=== PATIENT | male | born 1950 | race Caucasian/White ===

== ENCOUNTER 2017-05-02 15:30 | Inpatient (IN) | payer MEDICARE, OTHER ==
[~2017-05-02] VITALS: Ht 175.3 cm; Wt 81.0 kg
--- NOTE | ~2017-05-02 | ECHO ---
Transthoracic Echocardiography Report (TTE) Demographics Patient Name LINDA VALDEZ Date of Study 05/03/2017 Patient Number [id number] Visit Number [id number] Date of 1950 Room Number G6322 Accession Number [id number] Gender Male Age 66 year(s) Referring Erinn Floyd MD Aids Social Worker Kari Buckner Physician RVT Physician Interpreting Jordan Ferguson MD Premium Cancellation Clerk Physician Supervising Ordering Physician Erinn Floyd MD, MD/P Nurse Stress Health Care Consultant Conclusions Summary The estimated left ventricular ejection fraction is 20-25%. Mild concentric left ventricular hypertrophy. Diastolic function indeterminate due to patient's arrhythmia. Mildly reduced right ventricular function. The left atrium is moderately dilated by LA volume index measurement. The right atrium is mild to moderately dilated. IVC not visualized due to poor subcostal window. Mild mitral regurgitation by color Doppler. The aortic valve is mildly sclerotic. There is trivial aortic regurgitation by color Doppler. Mild tricuspid regurgitation by color Doppler. Trivial pulmonic valve regurgitation by color Doppler. Possible trivial pericardial effusion. Possible pleural effusion. Definity images are 92-97 Procedure Type of Study TTE procedure:2D Echocardiogram, Echo with Contrast. Procedure Date Date: 05/03/2017 Start: 08:47 AM Study Location: Inpatient Portable Technical Quality: Adequate visualization Indications:Atrial fibrillation. Appropriate Use Criteria: 9 Patient Status: STAT Contrast Medium: Definity. Amount - 2 ml HR: 91 bpm BP: 129/90 mmHg M-Mode/2D Measurements LV Diastolic Dimension: 5.21 cm LV Systolic Dimension: 3.8 cm LV Septum Diastolic: 1.32 cm LV PW Diastolic: 1.34 cm AO Root Dimension: 2.5 cm Cardiac Output: 3.21 l/min AV Cusp Separation: 2 cm RV Diastolic Dimension: 2.75 cm LA volume: 87 ml LVOT: 2.1 cm RV Base: 3.23 cm LVOT VTI: 10.2 cm RV Mid: 3.02 cm LV Stroke volume: 35.31 ml TAPSE: 1.35 cm TDI-S': 8.99 cm/s Doppler Measurements AV Peak Velocity: 0.98 m/s MV Peak E-Wave: 1.33 m/s AV Peak Gradient: 3.8 mmHg AV Mean Gradient: 2 mmHg MV P1/2t: 43 msec LVOT Peak Velocity: 0.64 m/s TR Velocity:2.24 m/s PV Peak Velocity: 0.68 m/s TR Gradient:20.07 mmHg PV Peak Gradient: 1.84 mmHg E' Septal Velocity: 0.1 m/s E' Lateral Velocity: 0.13 m/s Findings Left Ventricle Mild concentric left ventricular hypertrophy. Diastolic function indeterminate due to patient's arrhythmia. Anterior wall and septum show severe hypokinesis Right Ventricle Mildly reduced right ventricular function. Left Atrium The left atrium is mildly dilated. Right Atrium The right atrium is mild to moderately dilated. IVC not visualized due to poor subcostal window. Mitral Valve Mild-moderate mitral regurgitation by color Doppler. Aortic Valve The aortic valve is mildly sclerotic. There is trivial aortic regurgitation by color Doppler. Tricuspid Valve Mild tricuspid regurgitation by color Doppler. Pulmonic Valve Trivial pulmonic valve regurgitation by color Doppler. Pericardial Effusion Possible trivial pericardial effusion. Miscellaneous Definity images are 92-97 Visualized portions of the aortic root and ascending aorta appear normal in size. No evidence of apical echo density to suggest thrombus Pleural Effusion Possible pleural effusion. Contractility Score LV regional wall motion:(0-Non visualized 1-Normal 2-Hypokinesis 3-Akinesis 4-Dyskinesis 5-Aneurysm) Signature dtt: Marty Ortega (cardio) dtd: 05/03/17 0847 Physician Self Edit
--- NOTE | ~2017-05-02 | CON ---
PATIENT'S NAME: LINDA VALDEZ [facility] AGE: 66 Y [address] ROOM: [id number] [place], [place] [address] LOCATION: GICU ADMIT DATE: 05/02/2017 Consultation DISCHARGE DATE: FAMILY PHYSICIAN: Alli Grande MD ATTENDING PHYSICIAN: BHANU ARRIAZA DATE OF CONSULTATION: 05/05/2017 REFERRING PHYSICIAN: Johnnie VIDALES MD LOCATION: [facility]. REFERRING PHYSICIAN: Syed Palma MD REASON FOR CONSULT: This is a palliative care referral for end-of-life discussion, goals of care, and patient and family support. HISTORY OF PRESENT ILLNESS: This 66-year-old male was admitted on 05/02/2017. 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 He was admitted for altered mental state and atrial fibrillation with RVR. The patient was going to start chemotherapy and underwent PEG tube placement and a Port-A-Cath placement and had the liver biopsy that confirmed it with metastasis to the liver. He had been given Ambien and Ativan at home, became more lethargic and confused, had fallen, was brought to the hospital in [place], and then later transferred to for higher level of care for cardiac and a followup on his atrial fibrillation with RVR with a heart rate of 153. The patient continues to be lethargic. Does arouse some, answer some questions, yes and no, but has not been eating much. Denies any pain or discomfort. No shortness of breath. No nausea or vomiting. He is tolerating tube feedings. 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 PAST SURGICAL HISTORY: PEG tube placement on 04/30/2017, Port-A-Cath placement and liver biopsy in PATIENT'S NAME: LINDA VALDEZ [facility] AGE: 66 Y [address] ROOM: [id number] [place], [place] [address] [facility] ADMIT DATE: 05/02/2017 Consultation DISCHARGE DATE: FAMILY PHYSICIAN: Alli Grande MD ATTENDING PHYSICIAN: BHANU ARRIAZA 2017, had cardiac stents placed in [place] per left heart catheterization; ulloa to legs and arms requiring surgery; and bilateral hand surgeries. ALLERGIES: LATEX CAUSES A RASH. SOCIAL HISTORY: He is and has 2 children, but he has no contact with them. He had been living at home with his . History of smoking 1/2-pack of cigarettes a day for 55 years, quit in 2013. No alcohol use. FAMILY HISTORY: He is adopted. Family history is unknown. REVIEW OF SYSTEMS: A complete review of systems was done. Chart was reviewed with spouse and is negative except as mentioned in the HPI. PHYSICAL EXAMINATION: VITAL SIGNS: Temperature 97.6, pulse 105, respirations 22, blood pressure is 102/74, and O2 saturation is 95% on 2 L of oxygen. GENERAL: Drowsy, does arouse, answers few questions, falls back to sleep easily, in no acute distress. SKIN: Warm and dry. Color is pale. HEENT: Sclerae are nonicteric. Conjunctivae are pale, pink. Mouth is pink and dry. No exudate. LYMPHATIC: No cervical adenopathy or thyromegaly. RESPIRATORY: Some rhonchi and rales in the left lung. Right lung is clear to auscultation. Diminished breath sounds. Even and regular. CARDIAC: S1 and S2, irregular rate and rhythm. Tachycardia. No obvious murmurs, rubs, or gallops. ABDOMEN: Soft and nontender. Positive bowel tones. No hepatosplenomegaly. Last BM was 05/01. NEUROLOGIC: Very sleepy. Disoriented to time and place. Not following commands. SKIN: Incision to anterior abdomen from liver biopsy and PEG tube placement in mid abdomen. Bandages on. It is dry and intact. See wound ostomy care nurse's note on size and description. MUSCULOSKELETAL: Decreased muscle mass in the extremities. EXTREMITIES: No cyanosis or deformities. Palliative Performance Scale is 10% totally bed-bound, unable to do any activity, total care. Some sips. Conscious level is drowsy and confused. IMPRESSION: 1. Weakness. PATIENT'S NAME: LINDA VALDEZ [facility] AGE: 66 Y [address] ROOM: [id number] [place], [place] [address] LOCATION: GICU ADMIT DATE: 05/02/2017 Consultation DISCHARGE DATE: FAMILY PHYSICIAN: Alli Grande MD ATTENDING PHYSICIAN: BHANU ARRIAZA 2. Fatigue. 3. Altered level of consciousness. 4. Acute encephalopathy. 5. Metastatic esophageal cancer with metastasis to the liver. 6. Dysphagia. PLAN: 1. Met with Yennifer. Discussed advanced esophageal cancer. He was suppose to start chemotherapy. She states "I don't think he will be able to take it due to his current condition and declining status." Asked questions about hospice. Education given on hospice services. [facility] the [facility], but is unable to afford room and board at the penitentiary. She had been taking care of the patient at home, but it is very taxing on her as a caregiver and has not a lot of family support, but may have to take the patient home and care for him. She is a certified rehabilitation counselor and would just need some assistance with care. Described services again of hospice and possible caregivers. 2. Code status and advance directive. He does not have an advance directive. The patient had been a do not intubate. Discussed benefits, burdens, and quality of life with coding with advanced esophageal cancer and decreased mental status. states she would like him to be a do not resuscitate/do not intubate. Dr. Palma notified, and code status changed. 3. Goals:. a. She would like to go see his mother in [place] and tell her personally that he is declining. It is an [address], and she would like to do that before taking him home. b. Continue treatments until she comes back. c. To be called if any condition changes. d. Check out hospice option and taking the patient home. 4. No spiritual needs. Discussed fears and concerns. Answered all questions. Education on advanced esophageal cancer, hospice, goals of care, and code status. Total time was 65 minutes, with 55 minutes for counseling and coordination of care. Thank you for allowing me to assist this patient and family. CELI MARK NP FOR MD QUINCY FATIMA/meghan PATIENT'S NAME: LINDA VALDEZ [facility] AGE: 66 Y [address] ROOM: [place] [address] [facility] ADMIT DATE: 05/02/2017 Consultation DISCHARGE DATE: FAMILY PHYSICIAN: Alli Grande MD ATTENDING PHYSICIAN: BHANU ARRIAZA /[id number] d: 05/06/17 1158 t: 05/14/17 1558, CONSULTATION REPORT
--- NOTE | ~2017-05-02 | HP ---
PATIENT'S NAME: LINDA VALDEZ [facility] AGE: 66 Y [address] ROOM: [id number] [place], [place] [address] LOCATION: GPCU ADMIT DATE: 05/02/2017 History & Physical DISCHARGE DATE: FAMILY PHYSICIAN: PHYSICIAN, UNKNOWN ATTENDING PHYSICIAN: BHANU ARRIAZA DATE OF SERVICE: CHIEF COMPLAINT: Altered mental status and atrial fibrillation with RVR. HISTORY OF PRESENT ILLNESS: This is a 66-year-old male who was recently diagnosed 2 weeks ago with esophageal cancer with metastasis to the liver. At baseline, the patient is a functional individual and without confusion. Other important medical history is that he also has a CKD, unclear what stage; has diabetes; has history of heart failure, and also has paroxysmal atrial fibrillation. The story is that last Friday the patient underwent a PEG tube placement and also Port-A-Cath placement and also had a liver biopsy performed. After the surgery, it was uneventful. The patient went home. Over the last 2 nights, the patient's had given the patient Ambien and Ativan, unknown what dose, to help him sleep better. Yesterday morning, the patient woke up with a little bit of lethargy and confusion. However, last night, the again gave the patient Ambien and Ativan. This was instructed by the home health nurse to help the patient sleep better. This morning the patient woke up even more confused. Before Ambien and Ativan were given to the patient, the patient was behaving in his normal usual state. The thinks that the Ativan and Ambien cause all these problems, because he became confused after taking Ambien and Ativan. This morning the patient was walking, and the patient fell backwards landing on the patient's . The patient landed his buttocks on the ground. The was able to call for help and brought him back to his chair. However, the patient was still confused and restless; therefore, the patient was brought to the ER at [facility]. The patient strongly denies any chest pain or palpitation or fever or chills or cough. At the time of my interview, the patient is able to answer questions. However, the patient does have worsening exertional dyspnea for the last few days and has been becoming a little bit worse today. He chronically has leg edema, and the states that the leg edema looks worse than his usual leg edema. In [facility] Room, the patient was found to be in atrial fibrillation with RVR, heart rate at 153, blood pressure always remained stable at 140s. The patient was requiring 2 L of oxygen nasal cannula and saturation was 97%. There was no labored breathing. Because of the atrial fibrillation with RVR, the patient was sent over here. The patient has been taking Xarelto for long time and denies any history of bleeding. PATIENT'S NAME: LINDA VALDEZ [facility] AGE: 66 Y [address] ROOM: [address] [address] LOCATION: [facility] ADMIT DATE: 05/02/2017 History & Physical DISCHARGE DATE: FAMILY PHYSICIAN: PHYSICIAN, UNKNOWN ATTENDING PHYSICIAN: BHANU ARRIAZA REVIEW OF SYSTEMS: As mentioned in the history of present illness. All other systems were reviewed and were negative except for those mentioned in history of present illness. PAST MEDICAL HISTORY: 1. Paroxysmal atrial fibrillation, on Xarelto, and also on rate controlled with beta noel and also calcium channel noel. 2. Esophageal cancer diagnosed 2 weeks ago with the liver metastasis. The chemotherapy is scheduled to begin for the first time next Friday. 3. CKD, unclear what stage is his baseline. 4. Diabetes type 2. 5. History of heart failure, unclear which type, given that there is no echo to know the EF. 6. Bilateral blurry vision (the patient says after the PEG tube during the procedure, blood pressure was low, and after the surgery, he has blurry vision in both eyes). The patient is scheduled to see an card puncher in the near future. 7. Acute coronary syndrome in August 2016, status post stents to heart that was done in [place]. ALLERGIES: LATEX WHICH CAUSES RASH. HOME MEDICATIONS: Currently, it has been reconciled. He is on: 1. Xarelto. 2. Cardizem. 3. Toprol-XL at home. SOCIAL HISTORY: The patient was a former cigarette smoker. He quit about 5 years ago. He used to smoke about 1 pack per day for many years. The patient was a former alcohol drinker, but he quit 20 years ago. He denies any illegal drugs. FAMILY HISTORY: He is adopted; therefore, he does not know anything about his biological parents. PAST SURGICAL HISTORY: Status post cardiac stent placed in August 2016 in [place] for acute coronary syndrome. PHYSICAL EXAMINATION: PATIENT'S NAME: LINDA VALDEZ [facility] AGE: 66 Y [address] ROOM: [id number] [place], [place] [address] LOCATION: [facility] ADMIT DATE: 05/02/2017 History & Physical DISCHARGE DATE: FAMILY PHYSICIAN: PHYSICIAN, UNKNOWN ATTENDING PHYSICIAN: BHANU ARRIAZA VITAL SIGNS: At the time of my dictation, temperature 97.4, heart rate 135, respirations 16, blood pressure 136/99, and saturation 95% on 2 L of nasal cannula. GENERAL APPEARANCE: Alert, right now, but sometimes he mumbles and does not answer the questions appropriately. Orientation is x3. HEENT: Pupils are equally round and reactive to light. Extraocular muscles intact. Anicteric sclerae. Nasal turbinates are normal bilaterally. Dry oral mucosa. NECK: No JVD at the moment. CARDIOVASCULAR: Irregularly irregular rate and rhythm. Tachycardic. No obvious murmurs, rubs, or gallops. RESPIRATORY: Clear to auscultation. No rales, rhonchi, crackles, or wheezing at the moment. ABDOMEN: Soft, nontender, nondistended. He has a PEG tube and also has an incision site from liver biopsy in the abdomen. The wound looks clean. There is no active purulent drainage. Mild erythema around the incision site of the PEG tube and also from the liver biopsy site, but do not look infected. EXTREMITIES: He has pitting edema in bilateral lower extremities. The patient states this is chronic, but slightly worse than his usual baseline. NEUROLOGIC: Alert, but disoriented to place. Cranial nerves 2 through 12 intact. Muscle strength 5/5. Sensation intact. No facial droop. No pronator drift. No slurred speech. Babinski negative. Reflex at the knee normal. [id number] intact. SKIN: He has an incision wound in the anterior abdomen from the liver biopsy site, and the wound looks clean. Also has a PEG tube. The skin around the PEG tube and around the liver biopsy incision site looks a little bit erythematous, but has been like that since the surgery. No pus. No active purulent drainage. LABORATORY DATA: Lactic acid 1.8, CPK 34, troponin 0.091. White blood cell 10.2, hemoglobin 12.8, hematocrit 38.7, MCV 94.4, platelets 161. Glucose 149, BUN 34, creatinine 2.0, sodium 141, potassium 4.2, chloride 106, CO2 of 25, calcium 8.5, total protein 5.6, albumin 2.5, AST 67, ALT 68, alkaline phosphatase 523, total bilirubin 1.7, direct bilirubin 0.9, magnesium 2.1. GFR 33, anion gap 14.2, INR 1.53, CK-MB 2.2. Procalcitonin pending. IMAGING STUDY: EKG on admission on May 02, 2017, at 7:34 p.m. shows atrial fibrillation with RVR, heart rate at 145. Compared to the prior EKG on May 02, 2017, at 1:51 p.m. also showed atrial fibrillation with RVR, heart rate of 153. Chest x-ray on admission, the official reading is pending, might have some congestion in bibasilar bases. Please follow up with official report in the morning. PATIENT'S NAME: LINDA VALDEZ [facility] AGE: 66 Y [address] ROOM: [place] [address] LOCATION: [facility] ADMIT DATE: 05/02/2017 History & Physical DISCHARGE DATE: FAMILY PHYSICIAN: PHYSICIAN, UNKNOWN ATTENDING PHYSICIAN: BHANU ARRIAZA ASSESSMENT AND PLAN: 1. Regarding his atrial fibrillation with rapid ventricular response: Continue Cardizem drip. He is already maxed at 15 mg/hr. I will start him on amiodarone bolus followed by drip per protocol for the atrial fibrillation with rapid ventricular response. He is already anticoagulated with Xarelto for long time already. I will cycle cardiac enzymes every 6 hours. The patient denies any chest pain. If the patient has chest pain, we will get an EKG stat and also troponin stat and also consider starting ACS protocol if necessary. I will also make a phone call to the senior cytogenetic technologist [facility] ascp consultant right now for further recommendation. I will get an echo in the morning and also get an EKG again in the morning. Further plan will depend on clinical course. 2. Regarding his acute hypoxemic respiratory failure requiring 2 L to keep saturation at 96%: X-ray to me looks a bit congested. He has some decreased breath sounds at both bases also. However, the patient denies any shortness of breath at the moment. The patient does have edema in the legs. I am going to diurese him with IV Lasix. Further plan depends on clinical course. ProBNP is pending. Also strict intake and output measurement, daily weight, and also fluid restriction for now. Further plan will depend on clinical course. 3. Regarding his altered mental status: Could be from the medications, Ativan and Ambien, that the patient got last night. However, I have to rule out other causes. When the patient is more stable, I am going to do a CT of the head without contrast to rule out bleeding, and if that is negative, can do an MRI of the brain without contrast to rule out any finding of stroke. Fall precaution. Aspiration precaution. Speech and swallow evaluation. Also consult Nutrition for the PEG tube feeding. I will also check urinalysis and also check a urine drug screen. May also try flumazenil to reverse the benzodiazepine effect. Further plan will depend on clinical course. The other differential for the confusion could also be brain metastasis. I will do imaging tonight. 4. Regarding his esophageal cancer with metastasis to the liver: Consult Wound Care. Also consult Nutrition for tube feedings. The patient is followed by Dr. Gama for the cancer. Can consult Oncology if necessary. The patient is scheduled for chemotherapy next Friday. 5. Regarding his chronic kidney disease: Not sure what his baseline, we do not have any labs to compare. Currently GFR 33, creatinine 2.0. He has a Carballo already. We will measure in's and out's strictly. Careful with the diuresis to not over diurese. Could also be cardiorenal syndrome. Further plan depends on clinical course. 6. Regarding his diabetes type 2: We will use subcutaneous insulin while he is here. 7. Regarding his history of congestive heart failure: We will get an echo in the morning. Refer to the previous points for details. PATIENT'S NAME: LINDA VALDEZ [facility] AGE: 66 Y [address] ROOM: [address] [address] LOCATION: GPCU ADMIT DATE: 05/02/2017 History & Physical DISCHARGE DATE: FAMILY PHYSICIAN: PHYSICIAN, UNKNOWN ATTENDING PHYSICIAN: BHANU ARRIAZA 8. Regarding his history of coronary artery disease requiring cardiac stent placed in August 2016 in [place]: Cycle cardiac enzymes. The patient denies chest pain. EKG, no acute ischemia. Further plan depends on clinical course. 9. Regarding his deep vein thrombosis prophylaxis: He is already on Xarelto. 10. Code status: He is a DNI, but not DNR. Time spent in care on the day of admission, total time spent was 60 minutes where 30 minutes was spent on interview and physical examination and also on chart review. The remainder of the time was spent on talking to the to get a history and also addressing all the questions and concerns the patient and the had and also going over the plan of care with the patient and the . Further plan will depend on clinical course. MD ZI FLORES/meghan /[id number] D: [id number] T: [id number] HISTORY & PHYSICAL
--- NOTE | ~2017-05-02 | CON ---
PATIENT'S NAME: LINDA VALDEZ [facility] AGE: 66 Y [address] ROOM: [address] [address] LOCATION: GICU ADMIT DATE: 05/02/2017 Consultation DISCHARGE DATE: FAMILY PHYSICIAN: PHYSICIAN, UNKNOWN ATTENDING PHYSICIAN: BHANU ARRIAZA REFERRING PHYSICIAN: Johnnie VIDALES MD REASON FOR CONSULT: Atrial fibrillation with rapid ventricular response. HISTORY OF PRESENT ILLNESS: This is a 66-year-old male with a history of atrial fibrillation, coronary artery disease, and diabetes mellitus. He was diagnosed with esophageal cancer with liver metastasis two weeks ago. He is now being admitted with altered mental status and atrial fibrillation with rapid ventricular response. He was transferred here from [facility]. He has been on Xarelto therapy for quite some time, and it is unknown if he has paroxysmal atrial fibrillation or chronic atrial fibrillation. He is still confused at the time of the consult; therefore, it is difficult to get information from him. In the data base, it does show that he had seen Dr. Mcdonald in the past from [facility] in [place]. Currently, he denies complaints of chest pain. He denies shortness of breath, although he appears short of breath with any kind of activity. PAST MEDICAL HISTORY: Obtained from old records. 1. Esophageal cancer with metastasis to the liver diagnosed 04/2017. 2. Chronic kidney disease, stage 3. 3. Diabetes mellitus type 2. 4. Atrial fibrillation. Only on rate control and long-term anticoagulation. 5. History of heart failure, type unknown. 6. History of blurred vision, with a diagnosis of homonymous hemianopsia after an MRI in 2014 with worsening blurred vision after PEG tube placed last Friday. 7. Hyperlipidemia. 8. Chronic headaches. 9. History of DVT of the right leg. 10. Severe anxiety and claustrophobia. PAST SURGICAL HISTORY: 1. PEG tube placed 04/30/2017 with Port-A-Cath placement and liver biopsy. 2. 2015, he has stents placed in [place] per left heart catheterization. 3. Meyers to the legs and arms requiring surgery. 4. Bilateral hand surgery. ALLERGIES: PATIENT'S NAME: LINDA VALDEZ [facility] AGE: 66 Y [address] ROOM: [address] [address] LOCATION: [facility] ADMIT DATE: 05/02/2017 Consultation DISCHARGE DATE: FAMILY PHYSICIAN: PHYSICIAN, UNKNOWN ATTENDING PHYSICIAN: BHANU ARRIAZA LATEX CAUSING A RASH. SOCIAL HISTORY: He is . He has a history of smoking 1.5 packs of cigarettes a day for 55 years. He quit in 2013. He does not drink alcohol. FAMILY HISTORY: He is adopted and family history is unknown. REVIEW OF SYSTEMS: I was unable to get review of systems. PHYSICAL EXAMINATION: VITAL SIGNS: He is 5 feet 9 inches, current weight is 174. Heart rate is 140, blood pressure is 145/95. He is obtunded. Respirations are 20 to 25. He is on O2 2 L, with O2 sats of 95%. HEENT: Pupils were equal. NECK: Soft and supple. There is no lymphadenopathy. No thyromegaly. CARDIOVASCULAR: He is tachycardic, irregular with apical murmur noted. ABDOMEN: Soft. Bowel sounds are present. EXTREMITIES: Trace of peripheral edema. Distal pulses are . SKIN: Cool to touch. LABORATORY DATA: Carotid Doppler today showed mild plaquing of 1%-39% bilaterally with good antegrade flow. Cardiac enzymes, a proBNP 31,101. Troponin 0.091 to 0.076. CK-MB is 2.2 to 2.1. CBC: WBC is 10.2, hemoglobin 12.8, hematocrit 38.7, platelets 161. Glucose 149, BUN 34, creatinine was 2.0, sodium 141, potassium 4.2, chloride 106, magnesium was 2.1. Hemoglobin A1c was 7.7. Cholesterol 78, triglycerides 84, HDL 24, LDL was 38. UA showed leukocytes 500, nitrite negative, bacteria moderate, yeast many, WBCs 10-20, epithelial 0-2. ASSESSMENT: 1. Atrial fibrillation with uncontrolled ventricular response. We will continue the Xarelto and work on better rate control. We will also get a clinic note from primary care physician to see if this is chronic atrial fibrillation. We will check an echocardiogram due to his diagnosis of congestive heart failure. 2. Elevated cardiac enzymes. I suspect this is secondary to his chronic kidney disease. 3. Elevated proBNP. We will see what the echocardiogram shows for further evaluation. PATIENT'S NAME: LINDA VALDEZ Traci [facility] AGE: 66 Y [address] ROOM: [id number], [place] [address] LOCATION: [facility] ADMIT DATE: 05/02/2017 Consultation DISCHARGE DATE: FAMILY PHYSICIAN: PHYSICIAN, UNKNOWN ATTENDING PHYSICIAN: BHANU ARRIAZA The assessment and plan, history of present illness, and physical exam are per Dr. Duncan. We would like to thank Dr. Arriaza for allowing us to participate in the patient's care. CANDI ROMANO APRN FOR CHIQUI DUNCAN MD TGP/modl /[id number] d: 05/04/17 1636 t: 05/21/17 1510, CONSULTATION REPORT
--- NOTE | ~2017-05-02 | CON ---
PATIENT'S NAME: DARIA VALDEZH Traci [facility] AGE: 66 Y [address] ROOM: [id number] [place] [id number] LOCATION: GICU ADMIT DATE: 05/02/2017 Consultation DISCHARGE DATE: FAMILY PHYSICIAN: Alli Grande MD ATTENDING PHYSICIAN: BHANU ARRIAZA DATE OF CONSULTATION: 05/05/2017 REFERRING PHYSICIAN: Dr. Arriaza. REASON FOR CONSULTATION: Abdominal wound. HISTORY OF PRESENT ILLNESS: This is a 66-year-old male patient who was admitted to [facility] with altered mental status and atrial fibrillation with RVR. The patient was diagnosed with esophageal cancer with mets to the liver 2 weeks ago. He recently had a PEG tube placed with a liver biopsy. Per previous records, he was discharged from the [facility] about 2 weeks ago and is being followed by home health. Previous to hospitalization, the patient fell at home and was noted to be confused after receiving Ambien and Ativan. During my interaction, the patient is sleeping and will not arouse. PAST MEDICAL HISTORY: Paroxysmal atrial fibrillation; esophageal cancer with liver metastases; chronic kidney disease, stage unknown; congestive heart failure with recent EF 20% to 25%; coronary artery disease; history of blurred vision; chronic headaches; history of DVT to the right leg; anxiety; claustrophobia; hyperlipidemia; and type 2 diabetes mellitus. PAST SURGICAL HISTORY: PEG tube placement with liver biopsy and Port-A-Cath placement, previous heart catheterizations, bilateral hand surgery, and ulloa to arms and legs requiring surgery. FAMILY HISTORY: None listed. SOCIAL HISTORY: The patient lives with his in [place]. Per previous records, he quit smoking in 2013. No record of alcohol abuse. ALLERGIES: PATIENT'S NAME: DARIA VALDEZH Traci [facility] AGE: 66 Y [address] ROOM: [id number] [place] [id number] LOCATION: GICU ADMIT DATE: 05/02/2017 Consultation DISCHARGE DATE: FAMILY PHYSICIAN: Alli Grande MD ATTENDING PHYSICIAN: BHANU ARRIAZA LATEX. CURRENT MEDICATIONS: Please refer to the medication administration record. REVIEW OF SYSTEMS: Unable to complete as the patient is sleeping during the interaction and would not arouse. PHYSICAL EXAMINATION: VITAL SIGNS: Temperature 97.6, pulse 105, respirations 22, blood pressure 102/74, and pulse oximetry 95% on 2 L. Height 5 feet 9 inches and weight 76.8 kg. GENERAL: The patient is sleeping in bed. Does not wake up with turns. No interaction. HEENT: Head, normocephalic. Dry bloody oral mucosa. CARDIOVASCULAR: Regular rate and rhythm noted on the monitor. ABDOMEN: Soft and nontender. See skin assessment for further details. EXTREMITIES: Heels intact. SKIN: Mid abdomen incision directly above the umbilicus measures 2.5 cm width x 7.5 cm length x 3.0 cm depth. Sutures noted to the base of the wound bed. Mixture of moist pink tissue at the wound edges with yellow slough to the base. Moderate serosanguineous exudate. The periwound is slightly erythemic and scarred, but intact. No odor. No induration or fluctuance. The patient's left upper PEG site is red with a fungal rash. No active ulcers. Slow blanchable redness to buttocks. NEUROLOGICAL: Unable to complete. LABORATORY DATA: See chart. ASSESSMENT AND PLAN: Again, this is a 66-year-old male patient who was admitted to [facility] with altered mental status and atrial fibrillation with rapid ventricular response. Wound Care consult to assess an abdominal wound. 1. Abdominal wound, status post liver biopsy. We will loosely pack site with a wet-to-dry dressing changing b.i.d. 2. PEG tube candidiasis rash. I instructed nursing to apply nystatin powder b.i.d. and place a foam drain sponge around his PEG tube. I did stabilize the tube with a Carballo catheter stabilization device. 3. Pressure ulcer prevention. The patient has low blanchable redness to sacrum. He is on PEG tube feeding. He is certainly at risk for pressure ulcers. I instructed nursing to turn him in bed q.2 hours from side to side. He is to keep his heels on pillows at all times. I instructed nursing to do oral cares every 2 hours. Nursing is to apply Aloe [place] PATIENT'S NAME: LINDA VALDEZ [facility] AGE: 66 Y [address] ROOM: [address] [address] LOCATION: [facility] ADMIT DATE: 05/02/2017 Consultation DISCHARGE DATE: FAMILY PHYSICIAN: Alli Grande MD ATTENDING PHYSICIAN: BHANU ARRIAZA t.i.d. to buttocks and p.r.n. incontinence. For now, he does have a Carballo catheter in. I would like to thank Dr. Arriaza for this consult. GERONIMO OSULLIVAN APRN FOR MD CABRERA MEJIAS/meghan /[id number] d: 05/05/171942 t: 05/12/17 1043, CONSULTATION REPORT
--- NOTE | ~2017-05-02 | CON ---
PATIENT'S NAME: LINDA VALDEZ [facility] AGE: 66 Y [address] ROOM: [address] [address] LOCATION: GICU ADMIT DATE: 05/02/2017 Consultation DISCHARGE DATE: FAMILY PHYSICIAN: PHYSICIAN, UNKNOWN ATTENDING PHYSICIAN: BHANU ARRIAZA REFERRING PHYSICIAN: Johnnie VIDALES MD Consult for Dr. Arriaza. HISTORY OF PRESENT ILLNESS: This is an unfortunate 66-year-old gentleman who is referred for rehab, GIRP evaluation, was admitted on 05/02/2017 with confusion. He has been diagnosed for the last 2 weeks or so with advanced esophageal cancer with metastasis to liver. He is also diagnosed with chronic kidney disease stage at the present time unknown. Diabetes type 2. Paroxysmal atrial fibrillation. As per history last Friday, did have a PEG tube placement with a Port-A-Cath placement and a liver biopsy. He was brought in with advanced confusion and a little bit described as lethargic. My notes are from the chart and there is nobody with the patient, and patient himself cannot give any history. As per his history and physical, he was given Ativan and Ambien to sleep better, however, thinks that, that contributed to his confusion. He has history of edema on bilateral legs, which has also increased, has been on Xarelto, diagnosed with heart failure. He has PEG tube and is status post acute coronary artery syndrome diagnosed in August 2016. He is at the present time confused, unable to keep his eyes open, and mumbles his words, although his voice is clear and not wet. Tongue and soft palate are moving symmetrical. His tongue is very dry. He is allergic to latex as per notes. He can follow simple one-step instructions; however, he cannot make sensible PATIENT'S NAME: LINDA VALDEZ [facility] AGE: 66 Y [address] ROOM: [address] [address] LOCATION: GICU ADMIT DATE: 05/02/2017 Consultation DISCHARGE DATE: FAMILY PHYSICIAN: PHYSICIAN, UNKNOWN ATTENDING PHYSICIAN: BHANU ARRIAZA words. His reflexes are present and brisk throughout. PHYSICAL EXAMINATION: VITAL SIGNS: Blood pressure 122/89, temperature 97.5, pulse 120 and irregular, respiration rate 16. He is 5 feet 9 inches and weighs 75.7 kg. MEDICATIONS: He is on the following medications: 1. Alogliptin. 2. Cordarone. 3. Insulin aspartate, mild scale. 4. Toprol-XL. 5. NaCl 0.9%. 6. Seroquel. 7. Aspirin. 8. Flonase. 9. Protonix. 10. Dulera. 11. Lopressor. 12. Glucagon. 13. Glucose. 14. Dextrose. 15. Lipitor. 16. KCl. 17. Ativan. 18. Xarelto. 19. Cardizem. RECOMMENDATIONS AND PLAN: We will start him on bedside PT, OT, and speech. Please see the orders. I will continue to follow on him, and if he is able to tolerate intensive rehabilitation, we will re-evaluate for rehab admission. However, at the present time, he can hardly tolerate any bedside therapy. We will continue to watch. Thank you for this referral. KAYLA HOWELL MD WMS/modl PATIENT'S NAME: LINDA VALDEZ [facility] AGE: 66 Y [address] ROOM: [address] [address] LOCATION: [facility] ADMIT DATE: 05/02/2017 Consultation DISCHARGE DATE: FAMILY PHYSICIAN: PHYSICIAN, UNKNOWN ATTENDING PHYSICIAN: BHANU ARRIAZA /[id number] d: 05/04/17 1145 t: 05/05/17 0848, CONSULTATION REPORT
--- NOTE | ~2017-05-02 | CON ---
PATIENT'S NAME: LINDA VALDEZ [facility] AGE: 66 Y [address] ROOM: [id number] [place], [place] [address] LOCATION: GICU ADMIT DATE: 05/02/2017 Consultation DISCHARGE DATE: FAMILY PHYSICIAN: PHYSICIAN, UNKNOWN ATTENDING PHYSICIAN: BHANU ARRIAZA REFERRING PHYSICIAN: Johnnie VIDALES MD REASON FOR CONSULTATION: Renal insufficiency. HISTORY OF PRESENT ILLNESS: A 66-year-old male with history of hypertension, diabetes, heart failure, possible atrial fibrillation, possible CKD with unknown stage and unknown baseline, recently diagnosed esophageal cancer with metastasis to the liver. Admitted with altered mental status. Had atrial fibrillation with RVR. As per the chart, the patient had the diagnosis of esophageal cancer with liver metastases two weeks ago and the last Friday, he underwent PEG tube placement and Port-A-Cath placement along with a liver biopsy. After that procedure, he was apparently doing well but was taking Ativan and Ambien for lethargy, confusion as a sleeping aid. However, the patient continues to have more confusion and had a fall last morning, however, did not hit his head. The patient went to [facility] where he was found to have AFib with RVR and was subsequently transferred to our hospital for higher level of care. During the evaluation here, MRI shows a subacute CVA in the middle cerebral artery and posterior cerebral artery day 3 . He was on Xarelto in the past for AFib which has been put on hold to prevent hemorrhagic conversion of the stroke as well as the patient was started on Cardizem drip for his AFib with RVR. Meanwhile, his blood pressure was marginal with Cardizem, so he was switched back to his beta noel for rate control. During my evaluation, his heart rate is now in 80s, although blood pressure is in the 120 to 130s. During my evaluation, the patient is confused but alert, answering some of my questions, but not completely oriented. He denied any significant chest pain or shortness of breath or any significant leg swelling in bilateral lower extremity. However, as per the chart says, the patient did have some worsening of her baseline dyspnea on exertion over the last couple of days. Echo did show ejection fraction of 20% to 25%. Diastolic function could not be evaluated because of underlying arrhythmia. REVIEW OF SYSTEMS: As mentioned in HPI, could not be done in detail as the patient is confused, although alert and talking but not answering all the questions appropriately. PATIENT'S NAME: LINDA VALDEZ [facility] AGE: 66 Y [address] ROOM: [place] [address] LOCATION: [facility] ADMIT DATE: 05/02/2017 Consultation DISCHARGE DATE: FAMILY PHYSICIAN: PHYSICIAN, UNKNOWN ATTENDING PHYSICIAN: BHANU ARRIAZA PAST MEDICAL HISTORY: 1. Hypertension. 2. Diabetes. 3. CKD. 4. Unclear baseline. 5. Heart failure. 6. Paroxysmal atrial fibrillation, on long-term anticoagulation with Xarelto. 7. Bilateral blurry vision. 8. Acute coronary syndrome in August 2016 status post stent. ALLERGIES: LATEX. HOME MEDICATION: Xarelto, Cardizem, and Toprol-XL. SOCIAL HISTORY: Former smoker, quit five years ago, used to smoke about a pack-a-day for many years. Former alcohol drinker, stopped 20 years ago. No illegal drug use. FAMILY HISTORY: Adopted, does not have any information about his biological parents. PAST SURGICAL HISTORY: Cardiac stent placed in August 2016 in [place] for his CS. PHYSICAL EXAMINATION: VITAL SIGNS: Blood pressure is 120/50, heart rate at 80, 90% to 95% on 2 L nasal GENERAL: Not in apparent distress. HEAD: Moist mucous membranes. Bilateral PERRLA, EOMI. NECK: No JVD, thyromegaly or lymphadenopathy. CVS: S1-S2 positive. Irregular rate and rhythm. Heart rate currently in the 80s. No significant murmur, rubs, or gallops. CHEST: Bilateral air entry equal. No wheeze or rales. ABDOMEN: Soft, nontender, nondistended. PEG tube in place. EXTREMITIES: Trace to 1+ pitting edema in bilateral lower extremity, apparently chronic may be slightly worse than his usual baseline. MUSCULOSKELETAL: No limitation of range of motion. SKIN: No pallor, cyanosis, icterus. COMPUTER METEOROLOGIST: Alert but appears to be confused, although answering to questions but occasionally not appropriate. Muscle strength intact. Sensation intact. No facial droop. Reflexes are normal. PATIENT'S NAME: LINDA VALDEZ [facility] AGE: 66 Y [address] ROOM: [place] [address] LOCATION: [facility] ADMIT DATE: 05/02/2017 Consultation DISCHARGE DATE: FAMILY PHYSICIAN: PHYSICIAN, UNKNOWN ATTENDING PHYSICIAN: BHANU ARRIAZA LABORATORY DATA: WBC 10.2, hemoglobin 12.8, platelet 161. Chemistry; sodium 141, potassium 4.2, chloride 106, bicarbonate 25, calcium 8.5, total protein 5.6, albumin 2.5. AST 67, ALT 68, alkaline phosphatase 23, total bilirubin 0.7, albumin 0.9. BUN 34, creatinine 2 which went up to 2.1 this morning. Glucose 149, magnesium 2.1, and anion gap 14.2. INR 1.5. CK-MB 2.2. Lactic acid 1.8. Chest x-ray might have some condition versus consolidation in the right lung base. Echo 20% to 25% ejection fraction. Diastolic function is unknown. ASSESSMENT AND PLAN: 1. Renal insufficiency on acute kidney injury versus acute kidney injury on chronic kidney disease versus chronic kidney disease. Baseline renal function is unknown. The patient was not on baseline diuretic; however, noted to have some bilateral lower extremity edema, which is chronic probably with some acute deterioration. The patient got Lasix 40 mg IV x1 at night yesterday, but the patient's intake and output is quite similar. The creatinine was 2 yesterday and now 2.1. Blood pressure is kind of marginal specially with AFib with RVR. Ejection fraction 20% to 25% but with atrial fibrillation, the patient followed flow might be even more hamper. We agree with the primary team to withhold diuretic for 1 or 2 days and then start diuresing him. The patient is currently saturating okay with minimal oxygen support. We do not have old baseline report. We will try to contact a primary care provider to get the baseline renal function. 2. Atrial fibrillation with RVR, was on Cardizem overnight but now blood pressure is marginal. Switch back to Toprol-XL. 3. Acute hypoxic respiratory failure currently on 2 L saturation in the low 90s. Chest x-ray looks condition versus consolidation. Does have mild edema in the legs, but I do not think that there is significant component of fluid overload at this point. We will closely monitor. If needed, we can always give IV diuresis at a later date. 4. Altered mental status with possible subacute cerebrovascular accident, on MRI the [employer]/MCA territory. The Xarelto has been put on hold because to prevent hemorrhagic conversion of the underlying ischemic insult. 5. Esophageal cancer metastasis to the liver. Oncology may be consulted if necessary. 6. Diabetes, type 2. Subcutaneous insulin as per sliding scale. Defer further management as per primary congestive heart failure. 7. Decompensated systolic heart failure. Echo has been done; LVEF 20-25%. Holding diuretics as mentioned above with marginal BP. Cardiology is on board. We will defer further management to Cardiology. Thank you for allowing me to participate in this patient's care. We will closely monitor the patient's progress along with you. DIYAEKH KOKO LAROSE MD /modl /[id number] d: 05/03/17 1512 t: 05/05/17 1021, CONSULTATION REPORT
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
--- NOTE | ~2017-05-02 | CON ---
PATIENT'S NAME: LINDA MOODY [facility] AGE: 66 Y [address] ROOM: [id number], [place] [address] LOCATION: GICU ADMIT DATE: 05/02/2017 Consultation DISCHARGE DATE: FAMILY PHYSICIAN: Alli Grande MD ATTENDING PHYSICIAN: BHANU ARRIAZA DATE OF CONSULTATION: 05/04/2017 REFERRING PHYSICIAN: Johnnie VIDALES MD HISTORY OF PRESENT ILLNESS: Mr. Moody is a 66-year-old male patient who unfortunately had a recent diagnosis of metastatic esophageal cancer to his liver. He had a recent Port- A-Cath placement for liver biopsy and a PEG tube placement procedure around 2 weeks prior to his admission. After the procedure, he seemed to be fine, but he had received polypharmacy related sedative that night including Ativan and Ambien, which caused him to become progressively lethargic and confused at home. He ended up in [facility] due to his confusion, but also because he had fallen at home and landed on his backside and was progressively weak. His had taken him to the ER. In the ER, he was found to be in a rapid atrial fibrillation with rates into the 150s. He was sent to our hospital for rate-control and to evaluate his mental status change. Initial CAT scan did show evidence of strokes in multifocal regions, but a MRI of the brain did show multifocal areas of strokes both in the middle cerebral artery and the posterior artery territory. These strokes were not acute as they did not light up on DWI diffusion-weighted imaging, but were likely consistent with prior strokes associated with his atrial fibrillation. A prior occipital stroke was old and likely was associated with the patient's poor vision. Essentially, when I saw the patient on neurologic consultation, he was a bit lethargic, but he was alert and oriented, and answered questions appropriately. His mental status was I thought quite sufficient to follow all commands and he did not appear to have acute stroke-like symptoms. PAST MEDICAL HISTORY: Diabetes, hypertension, congestive heart failure history, history of paroxysmal atrial fibrillation for which he had been on Xarelto, and history of blurry vision, likely from a prior stroke history. PAST SURGICAL HISTORY: Included placement of a coronary stent back in August of 2016. ALLERGIES: HE HAS AN ALLERGY TO LATEX. HOME MEDICATIONS: Include: PATIENT'S NAME: LINDA MOODY [facility] AGE: 66 Y [address] ROOM: [id number], [place] [address] LOCATION: [facility] ADMIT DATE: 05/02/2017 Consultation DISCHARGE DATE: FAMILY PHYSICIAN: Alli Grande MD ATTENDING PHYSICIAN: BHANU ARRIAZA 1. Cardizem. 2. Toprol-XL. 3. Xarelto. Here in the hospital, his current medications include: 1. Metoprolol 12.5 mg twice a day via PEG. 2. Metoprolol 50 mg b.i.d. with a PEG. 3. Diltiazem 30 mg p.o. q.6 h. 4. Xarelto 15 mg p.o. daily. 5. Quetiapine 25 mg p.o. daily. 6. Alogliptin 12.5 mg p.o. daily. 7. Aspirin 81 mg p.o. daily. 8. Pantoprazole 40 mg p.o. daily. 9. Atorvastatin 80 mg p.o. daily. REVIEW OF SYSTEMS: The patient presented here after a fall at home and 2 days of lethargy and poor response to his in answering questions. Here in the hospital, he is much improved following commands. He has recently been diagnosed with esophageal cancer and is planning to have likely chemotherapy consideration for the newly-diagnosed cancer at his alternative hospice, history of atrial fibrillation with rapid ventricular response, he has been rate-controlled, currently, the Cardizem and metoprolol did come in with a bit of respiratory insufficiency requiring oxygen therapy, he is doing a bit better at this point in time. Neurologically, the patient demonstrates no evidence of any new stroke, but has had multifocal strokes in the past from atrial fibrillation and he is now on anticoagulation. PHYSICAL EXAMINATION: VITAL SIGNS: Pulse of 92 and regular, respiration rate 12, blood pressure 122/60, and temperature is afebrile. NEUROLOGIC: Cranial nerves 2 through 12 was intact. His motor exam revealed 5/5 power on the upper and lower extremities proximally and distally. I did not appreciate any focal pronator drift. He did coordination on finger-to- nose. Normal and rapid alternating hand movements are intact. Reflexes symmetric at +1 grossly in the upper and lower extremities. Plantar reflexes are downgoing. The patient is able to sit up and ambulate at the bedside without difficulty. IMPRESSION: Neurology was called to assess this patient with mental status changes mostly associated with lethargy and mild confusion. He is currently not confused and he is a bit stronger though not quite back to his baseline. I recommend that the patient be placed back on the Xarelto for anticoagulation purposes of atrial fibrillation. He has multifocal areas of strokes in the past and likely none of these new strokes on MRI are consistent with any acute events. PATIENT'S NAME: LINDA MOODY [facility] AGE: 66 Y [address] [id number] [address] LOCATION: [facility] ADMIT DATE: 05/02/2017 Consultation DISCHARGE DATE: FAMILY PHYSICIAN: Alli Grande MD ATTENDING PHYSICIAN: BHANU ARRIAZA I noticed that he is on aspirin currently and I recommend that aspirin be discontinued in the setting of known atrial fibrillation with Xarelto would be sufficient for atrial fibrillation control and the combination with aspirin likely presents an unnecessary bleed risk if Cardiology requires aspirin in addition that will be deferred to them. At this point in time, I do not have any further neurologic recommendations for the patient postpresentation. MD HUONG HUTTON/johnsonl /[id number] d: 05/09/17 0506 t: 05/14/17 1748, CONSULTATION REPORT
--- NOTE | ~2017-05-02 | ENPV ---
Carotid Duplex Study Demographics Patient Name LINDA VALDEZ Date of Study 05/03/2017 Patient Number [id number] Gender Male Date of 1950 Age 66 Visit Number [id number] Height 69 Accession Number [id number] Weight 174 Referring Erinn Glover MD Physician Nikolai Blair Physician Physician Ordering Physician Nikolai Blair [employer] Nuclear Medicine Technician Kari Buckner [facility] Conclusions Summary The right internal carotid artery has mild, 1-39%, plaque and stenosis. The right vertebral artery is present with antegrade flow. The left internal carotid artery has mild, 1-39%, plaque and stenosis. The left vertebral artery is present with antegrade flow. Procedure Type of Study: Cerebral:Carotid, Carotid Doppler Bilateral. Indications for Study:CVA. Appropriate Use Criteria:9 Blood Pressure:Right arm 129/90 mmHg. Patient Status:Routine. Study Location:Inpatient Portable. Technical Quality:Adequate visualization. Velocities are measured in cm/s ; Diameters are measured in cm Carotid Right Measurements Carotid Left Measurements + +--------+--------+ + + + +--------+ --------+ + + !Location !PSV !EDV !Angle !%Stenosis ! !Location !PSV ! EDV !Angle !%Stenosis ! + +--------+--------+ + + + +--------+ --------+ + + !Prox CCA !38 !10 !52 ! ! !Prox CCA !38 ! 12 !52 ! ! + +--------+--------+ + + + +--------+ --------+ + + !Dist CCA !30 !11 !52 ! ! !Dist CCA !28 ! 12 !52 ! ! + +--------+--------+ + + + +--------+ --------+ + + !Prox ICA !34 !13 !52 ! ! !Prox ICA !43 ! 18 !52 ! ! + +--------+--------+ + + + +--------+ --------+ + + !Dist ICA !53 !22 !52 ! ! !Dist ICA !46 ! 19 !52 ! ! + +--------+--------+ + + + +--------+ --------+ + + !Prox ECA !62 ! !52 ! ! !Prox ECA !81 ! !52 ! ! + +--------+--------+ + + + +--------+ --------+ + + !Vertebral !24 ! !52 ! ! !Vertebral !32 ! !52 ! ! + +--------+--------+ + + + +--------+ --------+ + + !Subclavian !36 ! ! ! ! !Subclavian !91 ! ! ! ! + +--------+--------+ + + + +--------+ --------+ + + - There is antegrade vertebral flow noted on the right side. - There is antegrade verte bral flow noted on the left side. - Add'l Measurements:ICAPSV/CCAPSV 1.39.ICAEDV/CCAEDV 2.31. - Add'l Measurements:ICAPS V/CCAPSV 1.19.ICAEDV/CCAEDV 1.65. Impressions Left Impression There is a mild amount of calcified plaque in the left carotid bifurcation . Signature dtt: BRIAN BLEVINS dtjasmin: 05/03/17 1317 Physician Self Edit
--- NOTE | ~2017-05-02 | DS ---
PATIENT'S NAME: LINDA VALDEZ [facility] AGE: 66 Y [address] ROOM: [place] [address] LOCATION: GI ADMIT DATE: 05/02/2017 Discharge Summary DISCHARGE DATE: 05/09/2017 FAMILY PHYSICIAN: Alli Grande MD ATTENDING PHYSICIAN: Adolfo Plasencia PRINCIPAL DIAGNOSES: 1. Acute encephalopathy. 2. Atrial fibrillation with rapid ventricular response. 3. Subacute CVA. 4. Stage IV esophageal cancer. 5. Acute systolic congestive heart failure with ejection fraction 20% to 25%. HOSPITAL COURSE: Please refer to the admission history and physical by Dr. Menchaca for a complete history of initial presentation. The patient was admitted to the hospital with changes in mental status, lethargy, and generalized weakness shortly after being diagnosed with stage IV esophageal cancer about 2 weeks prior to presentation and subsequently had a PEG-tube and had been receiving nutrition with that. In any case, the patient upon arrival to the emergency room was noted to be in atrial fibrillation with RVR with rates in the 150s and was subsequently admitted for management of rate control as well as workup for possible stroke. Initial workup included MRI of the brain, which did show multiple areas of possible subacute strokes appearing cardioembolic in nature, stemming from his paroxysmal atrial fibrillation. Neurology consultation was obtained, and assessment agreed that these were perhaps subacute strokes, and his anticoagulation with Xarelto was resumed. Dr. Brunner from Oncology also followed the patient along, and after discussion with the patient's and the patient's overall state of health, palliative care was recommended and was visited by Palliative Care team, and currently in agreement for the patient to be discharged home under hospice care. The patient today is in good spirits and doing well, and he is going home with hospice with his . PHYSICAL EXAMINATION: GENERAL: The patient is awake, alert, and oriented x3, in no acute distress. HEART: S1, S2. Regular rate and rhythm. ABDOMEN: Soft, nontender, nondistended. EXTREMITIES: Without edema. NEURO: Nonfocal. MEDICATIONS: Per JAN. DISPOSITION: Home with hospice care. PATIENT'S NAME: LINDA VALDEZ [facility] AGE: 66 Y [address] ROOM: [place] [address] LOCATION: [facility] ADMIT DATE: 05/02/2017 Discharge Summary DISCHARGE DATE: 05/09/2017 FAMILY PHYSICIAN: Alli Grande MD ATTENDING PHYSICIAN: Adolfo Plasencia Greater than 30 minutes were spent in discharge planning and facilitating. KANNANOT MD LAMBERTO LEES/johnsonl /[id number] d: 05/10/17 0424 t: 05/19/17 1510, DISCHARGE SUMMARY
[2017-05-02] MEDS ORDERED: ALBUTEROL2.5 MG/31 INH (17:21)
[2017-05-02] MEDS ORDERED: FLONASE 50 MCG/16 GM NOSE (17:23)
[2017-05-02] MEDS ORDERED: LASIX40 MG PO (17:23)
[2017-05-02] MEDS ORDERED: TOPROL XL100 MG PO (17:24)
[2017-05-02] MEDS ORDERED: BREO ELLIPTA 11 EACH INH (17:26)
[2017-05-02] MEDS ORDERED: LIPITOR80 MG GT (17:27)
[2017-05-02] MEDS ORDERED: CEFDINIR250 MG/5 M GT (17:34)
[2017-05-02] MEDS ORDERED: CARDIZEM60 MG GT (17:36)
[2017-05-02] MEDS ORDERED: DOCU LIQUI50 MG/5 ML GT (17:40)
[2017-05-02] MEDS ORDERED: NORCO 5-325 TA1 EACH GT (17:42)
[2017-05-02] MEDS ORDERED: ZOFRAN4 MG PO (17:43)
[2017-05-02] MEDS ORDERED: COZAAR100 MG GT (17:43)
[2017-05-02] MEDS ORDERED: PROTONIX40 MG GT (17:44)
[2017-05-02] MEDS ORDERED: K-TAB 10MEQ10 MEQ GT (17:45)
[2017-05-02] MEDS ORDERED: XARELTO15 MG GT (17:46)
[2017-05-02] MEDS ORDERED: JANUVIA 100 MG100 MG PO (17:48)
[2017-05-02] MEDS ORDERED: JEVITY 1.51 CAN GT (17:50)
--- NOTE | 2017-05-02 18:17 | NUR ---
Patient is 66 yo male admitted this evening from [facility] via Ambulance. Pat lives in [place] w/his . Patient apparently was in the hospital in [place]. He was discharged 2 weeks ago with Home health following him. Patient does have a left infusaport. has a melchor on admission. also has a J tube. patient is very confused. apparently has fallen yesterday and today. Heart rate was rapid patient was taken to ER in [place] and then transferred here. Unable to get accurate history from patient as he denied he was allergic to latex and denied having cancer. therefore, questions were stopped being asked of him as he seemed to get a little more aggitated w/questions. Patient's is not present during interview. education is not given to patient as he does not seem to be able to understand at this time. call light is within reach. pneumatics are on patient's bilat calves. vivek well at this time. red socks and fall and allergy bracelets on patient. report is given to UMAIR Short.
[2017-05-02 19:24] LABS: BASOPHIL # 0.1 K/uL (0.0-0.2); BASOPHIL % 0.5 %; EOSINOPHIL # 0.1 K/uL (0.0-0.5); EOSINOPHIL % 1.3 %; HEMATOCRIT 38.7 % (37.0-53.0); HEMOGLOBIN 12.8 g/dL (11.0-16.0); IMMATURE GRANULOCYTE % 0.4 %; LYMPHOCYTE # 1.3 K/uL (0.8-4.0); LYMPHOCYTE % 12.6 %; MCH 31.2 pg (27.0-34.0); MCHC 33.1 gm/dL (32.0-36.5); MCV 94.4 fl (83.0-98.0); MONOCYTE % 9.3 %; MPV 10.8 fl (9.4-12.4); NEUTROPHIL # (ANC) 7.7 K/uL (1.4-9.0); NEUTROPHIL % 75.9 %; NRBC % 0 /100WBC (0-0.00); PLATELET COUNT 161 K/uL (150-450); RDW-CV 16.5 % (11.9-14.6); WBC 10.2 K/uL (4.0-11.0)
[2017-05-02 19:33] LABS: INR - (THERAPEUTIC) 1.53 (0.92-1.07); PROTIME 16.1 SECONDS (9.8-11.4)
[2017-05-02 19:43] LABS: ALBUMIN 2.5 gm/dL (3.5-5.0); ANION GAP 14.2 (10.0-19.0); CALCIUM 8.5 mg/dL (8.5-10.5); MAGNESIUM 2.1 mg/dL (1.8-2.6); POTASSIUM 4.2 mMol/L (3.7-5.1); TOTAL BILIRUBIN 1.7 mg/dL (0.0-1.5); TOTAL PROTEIN 5.6 g/dL (6.0-8.4)
[2017-05-02 20:56] LABS: BILIRUBIN URINE NEGATIVE (NEGATIVE); BLOOD URINE 250 /UL (NEGATIVE); COLOR URINE YELLOW (YELLOW); GLUCOSE URINE NEGATIVE (NEGATIVE); KETONE URINE NEGATIVE (NEGATIVE); LEUKOCYTES URINE 500 /UL (NEGATIVE); NITRITE URINE NEGATIVE (NEGATIVE); PROTEIN URINE 100 mg/dL (NEGATIVE); TURBIDITY URINE 2+ (CLEAR); UROBILINOGEN URINE 1 mg/dL (NORMAL)
[2017-05-02 21:14] LABS: BACTERIA URINE MODERATE (NEGATIVE); CRYSTALS URINE URIC ACID (NEGATIVE); EPITHELIAL URINE 0-2 #/HPF (NEGATIVE); MUCUS URINE 1+ (NEGATIVE); RBC URINE 20-50 #/HPF (NEGATIVE); YEAST URINE MANY (NEGATIVE)
[2017-05-02 21:17] LABS: BARBITURATE NEGATIVE (NEGATIVE); COCAINE NEGATIVE (NEGATIVE)
[2017-05-02 21:20] LABS: AMPHETAMINE NEGATIVE (NEGATIVE)
[2017-05-02 21:21] LABS: OPIATES POSITIVE (NEGATIVE)
[2017-05-03 04:19] LABS: ANION GAP 17.2 (10.0-19.0); CALCIUM 8.7 mg/dL (8.5-10.5); CREATININE 2.1 mg/dL (0.6-1.3)
[2017-05-03 04:26] LABS: POTASSIUM 5.2 mMol/L (3.7-5.1)
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
--- NOTE | 2017-05-03 09:57 | NUR ---
CONSULT FOR TF RECS RECEIVED. IF ABLE TO START ORAL DIET REC JEVITY 1.5 @ 240 ML W/ 60 ML WATER VIA PEG TID BETWEEN MEALS (PER HOME REGIMEN) IF UNABLE TO START ORAL DIET REC JEVITY 1.5 @ 55 ML/HR W/ 160 ML WATER Q4 HRS.
[2017-05-03 12:35] LABS: ALBUMIN 2.6 gm/dL (3.5-5.0); CALCIUM 8.7 mg/dL (8.5-10.5); CREATININE 2.1 mg/dL (0.6-1.3); TOTAL BILIRUBIN 2.1 mg/dL (0.0-1.5); TOTAL PROTEIN 5.8 g/dL (6.0-8.4)
--- NOTE | 2017-05-03 19:27 | NUR ---
Significant Event: patient transferred from PCU to NTU at 1620. oriented to person. states in broken bow. speech is very difficult to understand. NIHSS=4 for visual impairment, not knowing month and speech slurring. follows commands. Unable to see out of either eye. Tele with afib. on amiodarone drip. Left port accessed and amiodarone drip infusing. 2 liters of oxygen continuous per home. mechanical soft diet with nectar thick liquids. per , she utilizes j tube for feedings, fluids and medications. dsg to wound near j tube C/D/I. chronic indwelling melchor. 1200ml fluid restriction. accuchecks ac/hs. resting in bed. 1:1 for impulsivity.
[2017-05-04 05:19] LABS: ANION GAP 12.7 (10.0-19.0); CALCIUM 8.4 mg/dL (8.5-10.5); CREATININE 1.8 mg/dL (0.6-1.3); PHOSPHORUS 3.1 mg/dL (2.5-4.9); POTASSIUM 3.7 mMol/L (3.7-5.1)
--- NOTE | 2017-05-04 06:02 | NUR ---
Significant Event: PATIENT IS ALERT AND ORIENTED TO PERSON. FOLLOWS COMMANDS OCCASSIONALLY. PUPILS ARE SLUGGISH. MUMBLES/GARBLED SPEECH. AFIB-SINUS TACH, ONE-TEENS TO 120'S. HAD 32 BEATS OF VT THIS AM-MD AWARE. 5MG LOPRESSOR GIVEN FOR HR GREATER THAN 100. SBP 120'S. 2L OF O2 PER NC. RESTLESS AND CAN BE COMBATIVE AT TIMES. 1:1. DRESSINGS TO THE RIGHT HAND AND STOMACH. J-TUBE NOT BEING USED AT THIS TIME. PORT IN LEFT UPPER CHEST HAS AMIODARONE AT 0.5 MCG/MIN. Follow up: CONTINUE TO MONITOR.
--- NOTE | 2017-05-04 09:09 | NUR ---
CONSULT RECEIVED PER STROKE PROTOCOL. NUTRITION ASSESSMENT COMPLETED 05/03. RECENT CANCER DX W/ PEG PLACEMENT. WILL PROVIDE DIET ED APPROPRIATE PRIOR TO DC.
[2017-05-04 16:05] LABS: BLOOD URINE 250 /UL (NEGATIVE); COLOR URINE RED (YELLOW); GLUCOSE URINE NEGATIVE (NEGATIVE); KETONE URINE 15 mg/dL (NEGATIVE); LEUKOCYTES URINE 500 /UL (NEGATIVE); NITRITE URINE NEGATIVE (NEGATIVE); PROTEIN URINE 100 mg/dL (NEGATIVE); TURBIDITY URINE 4+ (CLEAR); UROBILINOGEN URINE 8 mg/dL (NORMAL)
[2017-05-04 16:17] LABS: BACTERIA URINE FEW (NEGATIVE); EPITHELIAL URINE 0-2 #/HPF (NEGATIVE); RBC URINE PACKED FIELD #/HPF (NEGATIVE)
--- NOTE | 2017-05-04 20:14 | NUR ---
Significant Event: Neuro- alert. oriented to person. speech very difficult to understand. NIHSS=5. equal strength throughout. 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 Respiratory- wears 2 liters of oxygen at home continuously. lung sounds coarse. rare, moist cough. does remove oxygen frequently and refuse to let staff put back on. cardio- in afib. amiodarone drip infusing. HR is in 100s-130s. stated patient has been in afib since July 2011. Psych- patient does get agitated/anxious at times. 1:1 for impulsivity/fall risk. Integumentary- skin tears to bilateral hands open to air. Wound to abdomen from liver biopsy. Patient has apparently been seeing the wound care nurses for wound. wound is deep and wide and appears to have sutures at the bottom of the wound base. BID dsg changes of wet to dry gauze until WOC assesses tomorrow. Gtube site has small amount of brown drainage around site- cleansed and split sponges applied. Musculoskeletal- gait unsteady. 2 person assist with ambulation with walker. GI- melchor cath chronic indwelling. Per patient's he is suppose to have removed by urology in May. Melchor cath changed without difficulty this aftn and urine sample obtained per renal orders. - new orders for tube feeds and flushes. patient on mechanical soft diet with nectar thick liquids- refused lunch and refused drinks offered all shift. Patient's states he was not eatting or drinking at home due to esophageal cancer. pain- tylenol given for restlessness, s/s of pain. accuchecks ac/hs. MRA pending due to patient's restlessness and possible need for sedation if/when test if done. All meds administered per G tube this shift. On 1200 ml fluid restriction. Port to left chest for amiodarone drip. states patient was suppose to start treatment for his cancer with Dr. Gama Friday. ?Consult Dr. Gama?
--- NOTE | 2017-05-05 05:48 | NUR ---
Significant Event: PATIENT IS ALERT AND ORIENTED TO SELF. VSS. NIHSS-9. FOLLOWS COMMANDS. BLIND. AFEBRILE. SINUS TACH (ONE-TEEN'S TO 120'S). SBP ONE-TEEN'S TO 120'S-130'S. 2L OF O2 PER NC- LUNGS ARE SLIGHTLY COARSE. CHRONIC CHAVEZ, LASIX GIVEN ON DAYS, 1200 OUT FOR NOC'S. 1200 FLUID RESTRICTION. LAST BM 05/01-ACTIVE. TUBE FEEDING AT 35 ML/HR, GOAL IS 55, 160 ML FLUSHES Q4H PER J-TUBE. UPPER RIGHT ABDOMINAL WOUND-DRESSING CHANGED, WET-TO-DRY. PORT TO THE LEFT UPPER CHEST WITH AMIODARONE AT 0.5 MG/MIN-CONTINOUS. ACCU CHECKS-ACHS. Follow up: POSSIBLE MRA TODAY.
--- NOTE | 2017-05-05 11:29 | NUR ---
A - NUTRITION F/U. 05/04 GLU 155, BUN/CARBON PLANT GRINDER 30/1.8. NO EDEMA. DIET: DIABETIC MECH SOFT NECTAR LIQUIDS W/ 1200 ML FLUID RESTRICTION. PO REFUSED. TF PER G-TUBE JEVITY 1.5 AT 35 ML/HR; GOAL RATE IS 55 ML/HR WHICH WILL PROVIDE 1980 KCALS, 84 GM PROTEIN, 1003 ML FREE H20. FLUSHES W/ 160 ML H20 EVERY 4 HRS. D - AT RISK W/ INADEQUATE ORAL INTAKE R/T DECREASED APPETITE AND DYSPHAGIA AEB NEED FOR EN. I - GOAL: ADVANCE TF TO GOAL RATE OF 55 ML/HR. M/E - WILL CONT TO MONITOR TF AND ASSIST NEEDED. F/U IN 2-4 DAYS.
--- NOTE | 2017-05-05 14:19 | NUR ---
Significant Event:pt is drowsy but will awake with physical stimuli. Knows name only. NIHSS 9. Blind. pupil are 3.0 and brisk. moderate to strong strength throughout. will follow some commands. however, drowsiness has worsened. md aware. lung sounds are now clear and diminished. moist cough. afib rates 120's. amio dc. thready pulses. tf running in j-tube. melchor draining yellow urine. lasix given today. abd wound look at by woc and change. orders to change bid. Port to left chest accessed. achs. accuchecks. pallactive care consult today. no longer 1:1 Follow up:alarms.
--- NOTE | 2017-05-05 15:18 | NUR ---
Introduced self and role of care management to patients Yennifer. They live in [place]. She states that she has been his sole caregiver since taking him home from the [facility]. She states that she was told that if they did chemo he would live 4 months and if no chem maybe 2 months. She would like to take him home on Hospice but does not know if she can care for him by herself anymore. We did talk about the option of going to the long term with Hospice. She states that since she had to quit her job to care for him they have no income. I placed a call to Mary at [facility] to see if she could assit with a Medicaid application. I also call and got a Palliative Care consult. Yennifer states that they have no children that can help care for Arya. She stated that Arya has 2 daughters from a previous marriage but the daughters have nothing to do with him. She is planning on going to [place] to Aryas mothers to let her know in person that he does not have much time left. Will continue to follow.
[2017-05-05 23:17] LABS: MAGNESIUM 1.7 mg/dL (1.8-2.6)
[2017-05-06 04:09] LABS: ANION GAP 10.4 (10.0-19.0); CALCIUM 7.5 mg/dL (8.5-10.5); CREATININE 1.6 mg/dL (0.6-1.3); POTASSIUM 3.4 mMol/L (3.7-5.1)
[2017-05-06 04:13] LABS: ALBUMIN 1.8 gm/dL (3.5-5.0)
--- NOTE | 2017-05-06 04:38 | NUR ---
Significant Event: ALERT TO SELF AND . DROWSY. WAKES TO VERBAL STIMULI. FOLLOWS COMMANDS. MODERATE, EQUAL STRENGTH. LUNGS COARSE. PRODUCTIVE COUGH - HAVE TO ENCOURAGE PATIENT TO COUGH. RESPIRATIONS 20S-24. TACHYCARDIC 110S-140S. AFIB. SBP 100S-120S. CHAVEZ INTACT - 1100 OUT. J TUBE RUNNING JEVITY 1.5 AT 55/HR WITH Q4 160ML FLUSHES. ACHS ACCUCHECKS. 1200 FLUID RESTRICTION. MECHANICAL SOFT WITH NECTAR THICK LIQUIDS. MEDS CRUSHED IN J TUBE. TAKES EXTENDED RELEASE MEDS WHOLE WITH APPLESAUCE. UP FULL LIFT. PORT TO LEFT CHEST SALINE LOCKED. PATIENT HAD 19 BEATS OF VTACH. K WAS 3.0 AND MG WAS 1.7. GAVE 40MEQ OF K IV AND 1GM OF MG IV. CHANGED DRESSING TO ABDOMINAL WOUND -CHNG BID. CHANGED J TUBE DRESSING WTIH NYSTATIN. UP FULL LIFT. Follow up: GET ORDERS FOR STOOL SOFTENERS.
--- NOTE | 2017-05-06 17:14 | NUR ---
A - NUTRITION CONSULT FOR BOLUS FEEDING PEG PLACED ABOUT 2 WEEKS AGO. PALLIATIVE CONSULT 05/05. LABS: K+ 3.4, GLU 204, BUN 30, CREA 1.6, ALB 1.8, PO4 2.0 MEDS: REVIEWED DIET: CONSISTENT CARBS/MECH SOFT/NECTAR THICK LIQ/1500ML FLUID RESTRICTION W/ TF VIA PEG W/ JEVITY 1.5 AT 55ML/HR WITH 160ML WATER FLUSHES Q4 HR, PROVIDING 1980 KCAL, 84 GRAMS PROTEIN, 1003ML FREE WATER, TOLERATING WELL. REFUSED MEALS SINCE 05/04. PT WAS GETTING 3 CANS JEVITY 1.5 BETWEEN MEALS PRIOR TO HOSPITAL ADMISSION. EST NEEDS: [id number] KCAL, 80-95 GRAMS PROTEIN, FLUID NEEDS: PER MD D - INADEQUATE ORAL INTAKE RELATED TO DIFFICULTY SWALLOWING EVIDENCED BY DIAGNOSIS, PO INTAKE AND NEED FOR ENTERAL NUTRITION. I - DUE TO MINIMAL ORAL INTAKE, RECOMMEND BOLUS FEEDING 5 CANS JEVITY 1.5 PER DAY W/ 60ML WATER FLUSHES BEFORE AND AFTER EACH BOLUS; ADDITIONAL 70ML WATER FLUSHES QID TO PROVIDE 1800 KCAL (90% OF MIN KCAL NEEDS), 77 GRAMS PROTEIN (96% OF MIN PROTEIN NEEDS), 912ML FREE WATER. WILL NEED TO ADJUST TF DEPENDING ON PT'S APPETITE. M/E - GOAL: PT WILL BE ABLE TO TOLERATE ENTERAL NUTRITION AND ABLE TO MEET 100% OF PT'S NEEDS VIA BOTH EN AND ORAL INTAKE IN 2-4 DAYS. PLAN: 1) WILL MONITOR TF TOLERANCE, PO INTAKE, WT, LABS AND POC.
--- NOTE | 2017-05-06 18:07 | NUR ---
Significant Event: Patient alert to self, , [place], and year. Follows commands. Moves everything spontaneously. NIHSS 9. PERRLA. Legally blind. VSS. Tachycardic. MD aware. Changed PO blood pressure meds to help control. IVP lopressor Q6H. Tachypneic. 10 beats VTACH. 1 gm Mag sulfate given per MD order. 2L NC with sats in the low 90s. LS slightly coarse to diminished. IVP lasix given this shift. Abdominla wound changed this shift. J-tube site dressing changed. Redness noted. Nystatin applied. Mechanical soft diet with nectar thick liquids. TF at 55 ml/hr with 150 ml Q6H flushed. No residuals. 1500 ml fluid restriction. L) chest port SLL. Good blood return. 2 assist with gaitbelt and walker. Pleasant and cooperative with cares. Accuchecks ACHS with SSI. Moderate scale. Insulin given. at bedside. Follow up: home with hospice friday?
--- NOTE | 2017-05-07 03:45 | NUR ---
Significant Event: Alert and oriented to self and states date of . Patient states he is in [place] but does not know where in [place] he is. Follows commands with moderate strength in upper and lower extremities. Jevity running 55ml/hr and 150ml flushes q6h. ACHS accuchecks. Mechanical soft diet and nectar thickened liquids. Wet to dry dressing to abdominal wound changed. Dressing also changed to J tube with nystatin and gauze. Physician notified for HR's 120s and Cardizem ordered q6h. Left chest port and will have nurse draw this morning. Follow up:
[2017-05-07 06:32] LABS: ANION GAP 8.8 (10.0-19.0); CALCIUM 7.5 mg/dL (8.5-10.5); CREATININE 1.4 mg/dL (0.6-1.3); MAGNESIUM 1.9 mg/dL (1.8-2.6); PHOSPHORUS 1.6 mg/dL (2.5-4.9); POTASSIUM 2.8 mEq/L (3.7-5.1)
--- NOTE | 2017-05-07 12:05 | NUR ---
INTERDISCIPLINARY REFERRAL. INCONSISTENT REPORT OF G-TUBE VS J-TUBE IN CHART. SPOKE TO VIA PHONE FOR CLARIFICATION. PT HAS A G-TUBE PER . HAS BEEN GIVING PT 6 CANS OF JEVITY 1.5 PER DAY W/ TOTAL FLUID FLUSHES OF 32 Oz, WHICH PROVIDE ABOUT 2160 KCAL, 92 GRAMS PROTEIN, 1094ML FREE WATER (2054ML INCLUDING FLUSHES)-APPROPRIATE AND MEETING PT'S NEEDS. WHEN READY TO TRANSITION TO BOLUS FEEDING, RECOMMEND TO RESUME HOME TF REGIMEN. FOR FLUSHES, RECOMMEND 60ML BEFORE AND AFTER EACH BOLUS; ADDITIONAL 80ML TID IN BETWEEN FEEDINGS. CANNOT DO BOLUS VIA J-TUBE. POSSIBLE DISCHARGE W/ HOSPICE ON FRIDAY. PT CONTINUES TO REFUSED MEALS. WILL FOLLOW.
[2017-05-07 18:09] LABS: CREATININE 1.5 mg/dL (0.6-1.3)
[2017-05-07 18:10] LABS: ANION GAP 11.6 (10.0-19.0); CALCIUM 7.4 mg/dL (8.5-10.5); POTASSIUM 4.6 mMol/L (3.7-5.1)
--- NOTE | 2017-05-07 19:08 | NUR ---
Significant Event: a/o x 3. speech is muffled/garbled. pain to back and abdomen. follows commands. NIHSS=8. does have visual deficit, ataxia and speech impairment. ambulates with walker/gait belt and two assist. Port to left chest infusing potassium chloride at this time. flushes with good blood return. abdominal wound wet to dry dsg changed. G Tube with new orders for bolus feeds of 1 can of jevity 6 times/day or every 4 hours with flushes before and after. continues on 2 liters of oxygen. accuchecks ac/hs. meds per G tube. New order for Lortab PRN. Continue scheduled Acetamenophen. tele with chronic afib. plan- discharge to home Friday with hospice.
[2017-05-08 03:20] LABS: ANION GAP 9.6 (10.0-19.0); CALCIUM 7.3 mg/dL (8.5-10.5); CREATININE 1.5 mg/dL (0.6-1.3); MAGNESIUM 1.9 mg/dL (1.8-2.6); POTASSIUM 3.6 mMol/L (3.7-5.1)
--- NOTE | 2017-05-08 04:38 | NUR ---
Significant Event: A/OX3. FORGETFUL AT TIMES. DENIES NUMBNESS AND TINGLING. MOVES ALL EXTREMITIES SPONTANEOUSLY AND TO COMMAND. BLIND. MODERATE, EQUAL STRENGTH. NIHSS 7. LUNGS COARSE ON 3L OF O2. SBP IN 100S-120S. HEART RATE 70S-90S. AFEBRILE. Way INTACT DRAINING YELLOW URINE - 1300 OUT. [address] SWITCHING TO TUBE FEED 6 CANS/DAY WITH FLUSHES BEFORE AND AFTER. MECHANICAL SOFT WITH NECTAR THICK LIQUIDS. PILSS CRUSHED IN J TUBE. PORT TO LEFT CHEST SALINE LOCKED. ABDOMINAL WOUND NEXT TO J TUBE. CHANGE DRESSING WET TO DRY, TWICE DAILY. UP 2 ASSIST WALKER AND PIVOT. Follow up:HOME FRIDAY WITH HOSPICE.
--- NOTE | 2017-05-08 18:57 | NUR ---
Significant Event: a/o x 3. NIHSS=7 for vision impairment, ataxia and slurred speech. 2 liters of oxygen. tele with afib. meds per G tube. bolus tube feeds and flushes Q 4 hours. accuchecks ac/hs. Mechanical soft diet with nectar thick liquids. Right Port saline locked. Carball[place] DCd at 1600. G tube site cleansed and split sponge placed- small amount of redness to site. Wet to dry dsg to abdominal wound. ambulates with walker/gait belt and two assist. Plan- discharge to home tomorrow. Patient's will transport home per private vehicle. She stated she will need to wait for hospice to bring equipment to her home in [place] and then will come pick him up. Orders for port to be deaccessed prior to discharge.
[2017-05-09 04:36] LABS: ALBUMIN 1.8 gm/dL (3.5-5.0); ANION GAP 9.2 (10.0-19.0); CALCIUM 7.6 mg/dL (8.5-10.5); CREATININE 1.4 mg/dL (0.6-1.3); MAGNESIUM 1.7 mg/dL (1.8-2.6); PHOSPHORUS 2.7 mg/dL (2.5-4.9); POTASSIUM 3.2 mMol/L (3.7-5.1)
--- NOTE | 2017-05-09 07:05 | NUR ---
Significant Event: Oriented to person and place. NIHSS 8. G tube patent and receives bolus tube feedings with flushes and medications crushed. ACHS accuchecks. Takes scheduled Cardizem for history of Afib and tachycardia. Nurse draw through L)chest port this morning and can be de-accessed today when going home. 3L O2 NC. Wet to dry dressing change to abdomen region from previous liver biopsy. Dressing also changed to Gtube with nystatin and gauze. Re-placed melchor catheter due to urinary retension. Follow up: Home today on hospice
--- NOTE | 2017-05-09 09:01 | NUR ---
PT MOVED TO NO RISK. GOING HOME W/ HOSPICE TODAY.
--- NOTE | 2017-05-09 12:45 | NUR ---
Patient going home with Hospice today, Salina BRADY with palliative care has arranged.
[2017-05-09] MEDS ORDERED: ASPIR 8181 MG PO (13:29)
[2017-05-09] MEDS ORDERED: MAGNESIUM OXID400 MG PO (13:31)
[2017-05-09] MEDS ORDERED: MYCOLOG OINTMEN15 GM TOP (13:33)
[2017-05-09] MEDS ORDERED: SEROQUEL25 MG PO (13:34)
[2017-05-09] MEDS ORDERED: OXYGEN M-15 INH (13:38)
[2017-05-09] MEDS ORDERED: LORTAB ELIXI15 ML/UD PEG (13:39)
[2017-05-09] MEDS ORDERED: DIGOX125 MCG PO (15:41)
== END 2017-05-09 16:30 | disposition hospice, home (50) | DRG 64 ==
LOC: GPCU 17:00 → GICU 17:00
PROVIDERS: Family Medicine; Internal Medicine; Nurse Practitioner Acute Care; Nurse Practitioner Family; ADMIT Internal Medicine
PROC: F00ZJWZ Instrumental Swallowing and Oral Function Assessment using Swallowing Equipment (ICD-10-PCS; principal; 2017-05-02)
PROC: B246ZZZ Ultrasonography of Right and Left Heart (ICD-10-PCS; 2017-05-03)
DX: I63.9 Cerebral infarction, unspecified (principal); E43 Unspecified severe protein-calorie malnutrition; J96.01 Acute respiratory failure with hypoxia; N17.9 Acute kidney failure, unspecified; G93.40 Encephalopathy, unspecified; I47.2 Ventricular tachycardia; I50.23 Acute on chronic systolic (congestive) heart failure; N18.3 Chronic kidney disease, stage 3 (moderate); B37.9 Candidiasis, unspecified; E11.9 Type 2 diabetes mellitus without complications; C15.9 Malignant neoplasm of esophagus, unspecified; C78.7 Secondary malignant neoplasm of liver and intrahepatic bile duct; I13.0 Hypertensive heart and chronic kidney disease with heart failure and stage 1 through stage 4 chronic kidney disease, or unspecified chronic kidney disease; I48.0 Paroxysmal atrial fibrillation; E87.6 Hypokalemia; S31.109A Unspecified open wound of abdominal wall, unspecified quadrant without penetration into peritoneal cavity, initial encounter; Z66 Do not resuscitate; Z87.891 Personal history of nicotine dependence
CPT/HCPCS: A9270; C8929; J0282; J1642; J1940; J2060; J3475; J3480; J7040; J7050; J7060; Q9957